=== PATIENT | male | born 2000 | race Caucasian/White ===

== ENCOUNTER 2024-09-22 14:43 | Emergency (ER) | payer BC, SELFPAY ==
--- NOTE | ~2024-09-22 | US_ITS ---
US scrotum doppler INDICATION: TECHNIQUE: Testicular sonogram utilizing grayscale and color Doppler FINDINGS: The testes are normal in size and appearance. No focal lesions are seen. The right testes measures 4.1 x 2 x 3.1 cm centimeters, and the left testis measures 3.3 x 3 x 1.8 cm cm. There is nor mal vascular flow to both testes. The right and left epididymides appear normal. There is no varicocele or hydrocele. IMPRESSION: 1. NORMAL TESTICULAR ULTRASOUND. Reviewed, dictated and finalized at location A.
--- OUTSIDE RECORDS SUMMARY | 2024-09-22 14:45 | XMS_ITS | Referral Summary ---
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 12/17/19 17 Fracture of metatarsal bone 05/03/2015 Pain of foot 04/02/2015 Right inguinal hernia 03/05/2011 Well child visit 03/04/2011 Social History Tobacco Use Types Packs/Day Years Used Date Smoking Tobacco: Never Smokeless Tobacco: Never Tobacco Cessation:Counseling Given: Not Answered Sex and Gender Information Value Date Recorded Sex Assigned at Not on file 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 Gender Identity Not on file Sexual Orientation Not on file Last Filed Vital Signs Vital Sign Reading Time Taken Comments Blood Pressure 126/67 12/16/2016 9:34 AM CDT Pulse 80 12/16/2016 9:34 AM CDT Temperature - - Respiratory Rate - - Oxygen Saturation - - Inhaled Oxygen Concentration - - Weight 86.2 kg (190 lb) 02/17/2022 1:31 PM CDT Height 182.9 cm (6') 02/17/2022 1:31 PM CDT Body Mass Index 25.77 02/17/2022 1:31 PM CDT Plan of Treatment Not on file Insurance OceanTailer OOS OceanTailer OOS OceanTailer OOS Care Teams Order Caller Relationship Specialty Start Date End Date Loy Marino MD [address] [place] [id number] PCP - General 11/02/16
--- OUTSIDE RECORDS SUMMARY | 2024-09-22 14:45 | XMS_ITS | Clinical Summary ---
Author Organization [facility] Address [address] [place] [address] Care Team Providers Care Liberal Arts Dean Name Role Phone Unavailable Primary Care Provider Unavailabl e Source Comments [facility],non-owned Affiliates and Associated Physician Practices is amultiple site organization consisting of ambulatory clinics and hospital sitesin [place], [place], [place] and [place]. This disclosure is being madepursuant to the Care Everywhere program and may not contain all information available regarding this patient. 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 Gender Identity Not on file Sexual Orientation Not on file Plan of Treatment Health Maintenance Due Date Last Done Comments HIV SCREENING 2017 HPV VACCINE (1 - Male 3-dose series) 2017 MENINGOCOCCAL (Group B) VACC INE SHARED DECISION-MAKING (1 of 2 - Standard) 2018 HEPATITIS C SCREENING 09/15/2020 DTAP/TDAP/TD VACCINES (1 - Tdap) 2021 HEPATITIS B VACCINE (1 of 3 - 19+ 3-dose series) 2021 COVID-19 VACCINE (1 - 2023-2 5 season) 2023 DEPRESSION SCREENING 04/26/2024 INFLUENZA VACCINE (Season Ended) 2024 ZOSTER VACCINE (1 of 2) 2052 HIB VACCINE Aged Out No longer eligi ble based on patient's age to complete this topic MENINGOCOCCAL GROUPS A/C/Y/W VACCINE Aged Out No longer eligible b ased on patient's age to complete this topic PNEUMOCOCCAL VACCINE Aged Out No long er eligible based on patient's age to complete this topic
--- OUTSIDE RECORDS SUMMARY | 2024-09-22 14:45 | XMS_ITS | Clinical Summary ---
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 Gender Identity Not on file Sexual Orientation Not on file Obstetrics History Last Filed Vital Signs Vital Sign Reading [...] 02/17/2022 1:31 PM CDT Plan of Treatment Health Maintenance Due Date Last Done Comments Depression Screening 2002 Hepatitis C Screening 2002 DTaP/Tdap/Td Vaccine (1 - Tdap) 2013 Varicella Vaccines (1 of 2 - 13+ 2-dose series) 09/21/2015 HPV Vaccines (1 - Male 3-dos e series) 2017 Meningococcal B Vaccine (1 o f 2 - Standard) 2018 Hepatitis B Screening 2020 Regular Well Visit/Exam 18-64 2020 Influenza Vaccine (Season Ended) 2024 Meningococcal Vaccine Aged Out No cy michelle eligible based on patient's age to complete this topic Pneumococcal vaccine <65 Aged Out No longer eligible based on patient's age to complete this topic Insurance GetJar OOS GetJar OOS GetJar OOS Member Subscriber Plan / Payer (Ef fective 2009-Present) Name:Tho Morillo IV Relation to Subscriber:Child Name:ILIATHO Date of :1979 (Home) Address: [address] [place] [id number] Payer ID:[id number] (NAIC) Type:[facility] Address: [facility] [address] [id number] Care Teams Edge Runner Relationship Specialty Start Date End Date Loy Marino MD [address] [place] [id number] PCP - General 11/02/16
[2024-09-22 14:53] VITALS: BP 141/76; PULSE 83; RESP 20; TEMP 36.4; O2SAT 100
[2024-09-22 16:27] LABS: Add Urine Microscopic? NO; Appearance Urine Clear (Clear); Bilirubin Urine Negative (Negative); Blood Urine Negative (Negative); Color Urine Yellow (Yellow); Glucose Urine UA Negative (Negative); Ketones Urine Negative (Negative); Leukocyte Esterase Ur Negative LEU/UL (Negative); Nitrate Urine Negative (Negative); Protein Urine Negative (Negative); Specific Grav Ur 1.017 (1.001-1.035); Urobilinogen Urine 0.2 mg/dL (<2.0)
--- OUTSIDE RECORDS SUMMARY | 2024-09-22 16:31 | XMS_ITS | Clinical Summary ---
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
--- OUTSIDE RECORDS SUMMARY | 2024-09-22 16:31 | XMS_ITS | Referral Summary ---
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
--- OUTSIDE RECORDS SUMMARY | 2024-09-22 16:31 | XMS_ITS | Clinical Summary ---
Author Organization [facility] Address [address] [place] [address] Care Team Providers Care Thermostat Repairer Name Role Phone Unavailable Primary Care Provider Unavailabl e Source Comments [facility],non-owned Affiliates and Associated Physician Practices is amultiple site organization consisting of ambulatory clinics and hospital sitesin [place], [place], [place] and [place]. This disclosure is being madepursuant to the Care Everywhere program and may not contain all information available regarding this patient. 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
[2024-09-22 16:59] LABS: Syphilis IgG/IgM Antibody Negative (Negative)
--- NOTE | 2024-09-22 17:13 | ED_ITS ---
HPI - Male Genitourinary General Chief complaint: Urogenital-Male Stated complaint: TESTICULAR PAIN, LEFT Time Seen by Provider: 09/22/24 16:07 Source: patient Mode of arrival: ambulatory Limitations: no limitations History of Present Illness HPI Narrative: This is a 24 year old male presents to the ER for left sided testicular pain. Ongoing intermittently since yesterday. Denies fever, abdominal pain, flank pain , redness, swelling, dysuria, hematuria. Related Data Allergies Allergy/AdvReac Type Severity Reaction Status Date / Time No Known Allergies Allergy Unverified 11/12/14 12:20 Review of Systems Review of Systems: All systems reviewed & are unremarkable except as noted in HPI and below PMFSH Past Medical History Medical History (Updated 09/22/24 @ 17:56 by Love Markham PA-C) No active medical problems Social History Social History (Updated 09/22/24 @ 17:14 by Love Markham PA-C) Smoking status: Never smoker Exam Narrative: GENERAL: Well-appearing, well-nourished, and in no acute distress. HEAD: Normocephalic, atraumatic. EYES: EOMI. CHEST: Clear to auscultation. No respiratory distress. No wheezes rales or rhonchi HEART: Regular rate and rhythm. No murmur heard. Normal peripheral pulses. EXTREMITIES: Normal range of motion. No edema. SKIN: Warm, dry, no rash. NEURO: No focal deficits. Alert and oriented x3. PSYCH: Normal mood and affect MALE GENITAL: Normal appearing scrotum, no abnormal testicular swelling/masses noted Course Course Emergency Course: patient updated on his workup and agrees with plan of care Vital Signs Vital signs: Vital Signs Temperature 97.6 F 09/22/24 14:53 Pulse Rate 83 09/22/24 14:53 Respiratory Rate 09/22/24 14:53 Blood Pressure 141/76 H 09/22/24 14:53 Pulse Oximetry 100 09/22/24 14:53 Oxygen Delivery Room Air 09/22/24 14:53 Temperature 97.6 F 09/22/24 14:53 Pulse Rate 83 09/22/24 14:53 Respiratory Rate 20 09/22/24 14:53 Blood Pressure 141/76 H 09/22/24 14:53 Pulse Oximetry 100 09/22/24 14:53 Oxygen Delivery Room Air 09/22/24 14:53 MDM - Male Genitourinary MDM Narrative Medical decision making narrative: Patient presents the emergency department for testicular pain. He is afebrile and nontoxic appearing. Urine without evidence of infection. Testicular ultrasound is normal. Chlamydia, gonorrhea and Trichomonas are negative. No concerning findings on exam. Patient was updated on his workup. Instructed follow-up with urology if his symptoms persist. He was given warnings to return to the ER Differential Diagnosis Differential diagnosis: Likely urinary tract infection, urethritis and epididymitis Lab Data Attestation: I reviewed the patient's lab results. Labs: Lab Results 09/22/24 Range/Units 16:14 Urine Color Yellow (Yellow) Urine Appearance Clear (Clear) Urine pH 7.0 (5.0-9.0) Ur Specific [place] 1.017 (1.001-1.035) Urine Protein Negative (Negative) mg/dL Urine Glucose (UA) Negative (Negative) mg/dL Urine Ketones Negative (Negative) mg/dL Ur Blood (Man) Negative (Negative) Urine Nitrate Negative (Negative) Urine Bilirubin Negative (Negative) Urine Urobilinogen 0.2 (<2.0) mg/dL Leukocyte Esterase Rfl Negative (Negative) GENNA/UL Syphilis IgG/IgM Ab Negative (Negative) C. trachomatis (PCR) Not detected (NOT DETECTE) N. gonorrhoeae (PCR) Not detected (NOT DETECTE) T. vaginalis (PCR) Not detected (NOT DETECTE) Imaging Data Radiologist's impression: ITS Impressions Scrotum Ultrasound 09/22/24 15:27 IMPRESSION: 1. NORMAL TESTICULAR ULTRASOUND. Critical Care Time Critical Care Time Critical Care Time: No Discharge Plan Discharge Clinical Impression: Left testicular pain Patient Disposition: Home Condition: Stable Instructions: Testicle Pain (ED) Additional Instructions: Return to the emergency department if you experience fever, abdominal pain with nausea and vomiting, pain or burning with urination, blood in the urine, or any other symptoms that are concerning to you. Wear good scrotal supporting underwear. Take Ibuprofen as needed for pain Follow up with urology Patient Language: Japanese Follow-up/Referrals: Ashish Valenzuela MD [Physician] - Loy Marino MD [Primary Care Provider] -
[2024-09-22 17:36] LABS: Trichomonas Vag PCR NOT DETECTED (NOT DETECTE)
[2024-09-22 18:01] LABS: Chlamydia trachomatis NOT DETECTED (NOT DETECTE); Neisseria gonorrhoeae PCR NOT DETECTED (NOT DETECTE)
== END 2024-09-22 18:15 | disposition home or self-care (01) ==
PROVIDERS: Emergency Medicine; Emergency Provider Physician Assistant; PCP Family Medicine
DX: N50.812 Left testicular pain (principal)
CPT/HCPCS: 36415; 76870; 81003; 86593; 87491; 87591; 87661; 93976; 99284